=== PATIENT | male | born 1965 | race Caucasian/White ===

== ENCOUNTER 2016-09-11 13:36 | Emergency (ER) | payer BC ==
[2016-09-11 14:10] VITALS: BP 151/81; PULSE 96; RESP 16; TEMP 98.2
[2016-09-11] MEDS ORDERED: DIPH,PERTUS(ACELL)TETVAC-LF 0.5 ML VIAL IM ONE (14:49)
[2016-09-11] MEDS ORDERED: IBUPROFEN 800 MG TAB PO STA (14:50)
[2016-09-11] MEDS ORDERED: AMOXIC-POT CLAV 875-125MG 1 EACH TAB PO STA (14:56)
--- NOTE | 2016-09-11 15:19 | XR ---
EXAMINATION TYPE: XR finger RT, 3 views index finger. DATE OF EXAM: 09/11/2016 3:12 PM COMPARISON: NONE HISTORY: 50-year-old male with dogbite to right index finger, pain TECHNIQUE: 3 views FINDINGS: There appears to be some soft tissue injury to the mid aspect of the index finger. No underlying acut e fracture or dislocation. No retained radiopaque foreign body. IMPRESSION: Soft tissue injury to the index finger without acute osseous abnormality seen.
--- NOTE | 2016-09-11 15:30 | ED ---
Animal Bite HPI - General Chief Complaint: Animal Bite Stated Complaint: Dog Bite/Fingers Time Seen by Provider: 09/11/16 14:33 Source: patient Mode of arrival: ambulatory Limitations: no limitations - History of Present Illness Initial Comments: Patient is a 50-year-old right-handed white male presenting to the emergency department with complaints of dog bite to his right index finger. Onset of injury approximately one hour prior to arrival. Patient states that they fostering a dog from [employer]. Patient states that today he introduced the dog to another dog and they started fighting. Patient states that he grabbed the foster dog mouth and pried apart the jaws. Patient states that the dog then bit his finger. Patient complains of burning pain and swelling to his right index finger but denies numbness or tingling. Denies previous illness, fevers, chills, shortness of breath, nausea, vomiting, shortness of breath, chest pain, abdominal pain. Patient is unsure of date of last tetanus immunization. Patient reports that the foster dog has received its rabies immunizations. MD Complaint: animal bite Onset/Timin -: hour(s) Location: other Right: Hand (Index finger, palmar aspect, middle aspect, 2 cm dog bite/ laceration) Animal: dog Description: household pet, immunizations UTD Mechanism: bite, scratch, contact with mucous membranes Pain Description: burning Severity scale (1-10): 5 Context: animals fighting Associated Symptoms: other (Swelling) Treatments Prior to Arrival: irrigation - Related Data Patient Tetanus UTD: No Home Medications Medication Instructions Recorded Confirmed Fluticasone Nasal [place] [Flonase 1 spray EA NOSTRIL DAILY 06/28/16 09/11/16 Nasal [place]] Previous Rx's Medication Instructions Recorded Amoxic-Pot Clav 875-125Mg 1 tab PO Q12HR #20 tablet 09/11/16 [Augmentin 875-125] Allergies Allergy/AdvReac Type Severity Reaction Status Date / Time No Known Allergies Allergy Verified 09/11/16 14:10 Review of Systems ROS Statement: Those systems with pertinent positive or pertinent negative responses have been documented in the HPI. ROS Other: All systems not noted in ROS Statement are negative. Past Medical History Past Medical History: GERD/Reflux, Osteoarthritis (OA), Sleep Apnea/CPAP/BIPAP Additional Past Medical History / Comment(s): cluster headaches, no cpap used, hx anteroir compartment syndrom rt leg, hx shattered rt fibula History of Any Multi-Drug Resistant Organisms: None Reported Past Surgical History: Orthopedic Surgery Additional Past Surgical History / Comment(s): total 4 surgerys left leg and ankle from injurys, arthroscopy left knee, colonoscopy Past Anesthesia/Blood Transfusion Reactions: Postoperative Nausea & Vomiting ( PONV) Past Psychological History: No Psychological Hx Reported Smoking Status: Never smoker Past Alcohol Use History: None Reported Past Drug Use History: None Reported - Past Family History Mother Family Medical History: Cancer Brother(s) Family Medical History: Cancer General Exam Limitations: no limitations General appearance: alert, in no apparent distress Head exam: Present: atraumatic, normocephalic, normal inspection Eye exam: Present: normal appearance ENT exam: Present: normal exam, mucous membranes moist, normal external ear exam Neck exam: Present: normal inspection, full ROM Respiratory exam: Present: normal lung sounds bilaterally. Absent: respiratory distress, wheezes, rales, rhonchi, stridor Cardiovascular Exam: Present: regular rate, normal rhythm, normal heart sounds. Absent: systolic murmur, diastolic murmur, rubs, gallop, clicks GI/Abdominal exam: Present: soft, normal bowel sounds. Absent: distended, tenderness, guarding, rebound, rigid Right Hand Wrist exam: Present: full ROM, tenderness (Tenderness and swelling to right index finger, palmar aspect, middle aspect), swelling, laceration (2 cm laceration to right middle index finger, palmar aspect). Absent: ecchymosis, dislocation, erythema Neuro motor exam: Present: wrist extension intact, thumb opposition intact, thumb IP flexion intact, thumb adduction intact, fingers 2-5 abduction intact Neurosensory exam: Present: 2-point discrimination, radial nerve intact, ulnar nerve intact, median nerve intact Vascular: Present: normal capillary refill, radial pulse, brachial pulse, ulnar pulse. Absent: vascular compromise, pulse deficit radial art, pulse deficit ulnar art, pulse deficit brachial art Neurological exam: Present: alert, oriented X3, normal gait, other (No focal deficits) Psychiatric exam: Present: normal affect, normal mood Skin exam: Present: warm, dry, intact, normal color. Absent: rash Course Vital Signs 09/11/16 14:05 Temperature 98.2 F Pulse Rate 96 Respiratory 16 Rate Blood Pressure 151/81 O2 Sat by Pulse 96 Oximetry Procedures - Laceration Laceration #1 Consent Obtained: verbal consent Indication: laceration Site: hand (Right index finger, palmar aspect, middle) Size (cm): 2 Description: irregular Depth: simple, single layer Anesthetic Used: lidocaine 1% Anesthesia Technique: local infiltration Amount (mls): 2 Pre-repair: wound explored, irrigated extensively, deep structures intact, wound margins revised Type of Sutures: nylon Size of Sutures: 5-0 Number of Sutures: 4 Technique: simple, interrupted Patient Tolerated Procedure: well, no complications Medical Decision Making - Medical Decision Making Dog bite to right index finger resulting in a 2 cm laceration. X-ray of right finger without fracture. Laceration repaired. Patient tolerated well. Discharge instructions and return parameters reviewed with patient. Patient agrees to treatment plan. - Radiology Data Radiology results: report reviewed X-ray right index finger: Soft tissue injury to the index finger without acute osseous abdomen is seen. Disposition Clinical Impression: Dog bite Disposition: HOME SELF-CARE Condition: Good Instructions: Animal Bite (ED), Care For Your Stitches (ED), Laceration (ED) Additional Instructions: Please finish antibiotic as prescribed. Leave dressing on for 24 hours, remove immediately if wet. Please return to the emergency department immediately for signs of infection such as redness or red streaks going up her arm, increased pain, increased swelling, fevers. Please return to the emergency department for suture removal in approximately 10 days. Follow-up with primary care physician as directed. Prescriptions: Amoxic-Pot Clav 875-125Mg [Augmentin 875-125] 1 tab PO Q12HR #20 tablet Referrals: Josse Banda MD [Primary Care Provider] - 1-2 days Time of Disposition: 15:32
== END 2016-09-11 15:58 | disposition home or self-care (01) ==
LOC: EC 13:36
DX: S61.250A Open bite of right index finger without damage to nail, initial encounter (principal); W54.0XXA Bitten by dog, initial encounter; Z79.51 Long term (current) use of inhaled steroids; G47.30 Sleep apnea, unspecified; Z99.89 Dependence on other enabling machines and devices; Z23 Encounter for immunization
CPT/HCPCS: 12001; 90471; 90715; 99283

== ENCOUNTER 2021-07-13 10:29 | Emergency (ER) | payer BC ==
[2021-07-13] MEDS ORDERED: IBUPROFEN 600 MG TAB PO STA (11:31)
[2021-07-13] MEDS ORDERED: ACETAMINOPHEN TAB 500 MG TAB PO STA (11:31)
[2021-07-13] MEDS ORDERED: SODIUM CHLORIDE 0.9% 1,000 ML IV STA (11:31)
--- NOTE | 2021-07-13 11:46 | ED ---
General Adult HPI - General Chief complaint: Upper Respiratory Infection Stated complaint: Covid+/sob/dizziness Time Seen by Provider: 07/13/21 10:58 Source: patient Mode of arrival: ambulatory Limitations: no limitations - History of Present Illness Initial comments: 55-year-old male presents to the emergency room for a chief complaint of cough. Patient has had a dry cough for 5 days now. States that when he coughs really hard he'll get lightheaded. He has had headaches and body aches. He has not had Motrin or Tylenol today. Patient believes he has COVID-19. He did test positive for a home test. He is not vaccinated. He would like antibody infusion.Patient has no other complaints at this time including shortness of breath, chest pain, abdominal pain, nausea or vomiting, headache, or visual changes. - Related Data Home Medications Medication Instructions Recorded Confirmed Albuterol Sulfate [Albuterol 2 puff PO RT-Q4H PRN 07/13/21 07/13/21 Sulfate Hfa] Budesonide [Pulmicort Flexhaler] 2 puff INHALATION RT-BID PRN 07/13/21 07/13/21 Gabapentin [Neurontin] 300 mg PO TID 07/13/21 07/13/21 Prazosin HCl 1 mg PO HS 07/13/21 07/13/21 levoFLOXacin 500 mg PO DAILY 07/13/21 07/13/21 methylPREDNISolone Dose Pack See Taper PO DIRECTED 07/13/21 07/13/21 [Medrol Dose Pack] Allergies Allergy/AdvReac Type Severity Reaction Status Date / Time No Known Allergies Allergy Verified 09/11/16 14:10 Review of Systems ROS Statement: Those systems with pertinent positive or pertinent negative responses have been documented in the HPI. ROS Other: All systems not noted in ROS Statement are negative. Past Medical History Past Medical History: GERD/Reflux, Osteoarthritis (OA), Sleep Apnea/CPAP/BIPAP Additional Past Medical History / Comment(s): cluster headaches, no cpap used, hx anteroir compartment syndrom rt leg, hx shattered rt fibula History of Any Multi-Drug Resistant Organisms: None Reported Past Surgical History: Orthopedic Surgery Additional Past Surgical History / Comment(s): total 4 surgerys left leg and ankle from injurys, arthroscopy left knee, colonoscopy Past Anesthesia/Blood Transfusion Reactions: Postoperative Nausea & Vomiting (PONV) Past Psychological History: No Psychological Hx Reported Smoking Status: Never smoker Past Alcohol Use History: Occasional Past Drug Use History: None Reported - Past Family History Mother Family Medical History: Cancer Brother(s) Family Medical History: Cancer General Exam Limitations: no limitations General appearance: alert, in no apparent distress Head exam: Present: atraumatic Eye exam: Present: normal appearance, PERRL, EOMI. Absent: scleral icterus, conjunctival injection ENT exam: Present: normal exam, mucous membranes moist Neck exam: Present: normal inspection, full ROM. Absent: tenderness Respiratory exam: Present: normal lung sounds bilaterally. Absent: respiratory distress, wheezes Cardiovascular Exam: Present: regular rate, normal rhythm, normal heart sounds Course Vital Signs 07/13/21 07/13/21 10:40 12:23 Temperature 100.7 F H Pulse Rate 97 87 Respiratory 20 18 Rate Blood Pressure 151/86 129/78 O2 Sat by Pulse 94 L 94 L Oximetry Medical Decision Making - Medical Decision Making Vitals are stable. Patient is 94% on room air. No respiratory distress. Laboratory evaluation was unremarkable aside from some mild dehydration, treated with IV fluids. Wade virus was retested given test was a home test and it was detected. Chest x-ray does show covid pneumonia Patient was given antibody infusion and monitored for an hour in the ER. He was given strict return parameters. He will follow-up with his doctor and return here for any worsening symptoms. - Lab Data Result diagrams: 07/13/21 11:33 07/13/21 11:33 Lab Results 07/13/21 07/13/21 07/13/21 Range/Units 11:32 11:33 11:33 WBC 5.0 (3.8-10.6) k/uL RBC 5.02 (4.30-5.90) m/uL Hgb 15.7 (13.0-17.5) gm/dL Hct 43.3 (39.0-53.0) % MCV 86.4 (80.0-100.0) fL MCH 31.2 (25.0-35.0) pg MCHC 36.2 (31.0-37.0) g/dL RDW 13.1 (11.5-15.5) % Plt Count 106 L (150-450) k/uL MPV 9.7 Neutrophils % 75 % Lymphocytes % 13 % Monocytes % 9 % Eosinophils % 0 % Basophils % 1 % Neutrophils # 3.7 (1.3-7.7) k/uL Lymphocytes # 0.6 L (1.0-4.8) k/uL Monocytes # 0.4 (0-1.0) k/uL Eosinophils # 0.0 (0-0.7) k/uL Basophils # 0.0 (0-0.2) k/uL Hyperchromasia Slight Sodium 135 L (137-145) mmol/L Potassium 3.7 (3.5-5.1) mmol/L Chloride 100 (98-107) mmol/L Carbon Dioxide 21 L (22-30) mmol/L Anion Gap 14 mmol/L BUN 22 H (9-20) mg/dL Creatinine 0.87 (0.66-1.25) mg/dL Est GFR (CKD-EPI)AfAm >90 (>60 ml/min/1.73 sqM) Est GFR (CKD-EPI)NonAf >90 (>60 ml/min/1.73 sqM) Glucose 144 H (74-99) mg/dL Calcium 8.3 L (8.4-10.2) mg/dL Coronavirus (PCR) Detected A (Not Detectd) Disposition Clinical Impression: COVID-19 Disposition: HOME SELF-CARE Condition: Good Instructions (If sedation given, give patient instructions): Coronavirus Disease 2019 (COVID-19) Additional Instructions: Please take Motrin and Tylenol for fever. Drink plenty of fluids. Follow-up with your doctor. Return to the emergency room for any worsening symptoms. Is patient prescribed a controlled substance at d/c from ED?: No Referrals: Josse Banda MD [Primary Care Provider] - 1-2 days Time of Disposition: 12:55
[2021-07-13] MEDS ORDERED: SODIUM CHLORIDE 0.9% 50 ML IVPB ONE (12:00)
[2021-07-13] MEDS ORDERED: SOTROVIMAB (EUA) 500 MG in SODIUM CHLORIDE 0.9% 100 ML IVPB ONE (12:00)
[2021-07-13 12:04] LABS: African American GFR (CKD) >90 (>60 ml/min/1.73 sqM); Anion Gap 14 mmol/L; Blood Urea Nitrogen 22 mg/dL (9-20); Calcium 8.3 mg/dL (8.4-10.2); Carbon Dioxide 21 mmol/L (22-30); Chloride 100 mmol/L (98-107); Glucose 144 mg/dL (74-99); Non-African American GFR(CKD) >90 (>60 ml/min/1.73 sqM); Potassium 3.7 mmol/L (3.5-5.1); Sodium 135 mmol/L (137-145)
--- NOTE | 2021-07-13 12:11 | XR ---
EXAMINATION TYPE: XR chest 1V portable DATE OF EXAM: 07/13/2021 COMPARISON: NONE HISTORY: Cough. TECHNIQUE: Single AP portable frontal upright view of the chest is obtained. FINDINGS: There are low lung volumes and increased bilateral mid to lower lung opacities. No pleural effusion or pneumothorax seen bilaterally. The cardiac silhouette size is upper limits of normal in size. The osseous structures are intact. IMPRESSION: Low lung volumes with increased bilateral mid to lower lung opacities concerning for cov id-19 infection in current environment.
[2021-07-13 12:24] VITALS: RESP 18
[2021-07-13 12:48] LABS: Basophils % (A) 1 %; Eosinophils % (A) 0 %; HCT 43.3 % (39.0-53.0); HGB 15.7 gm/dL (13.0-17.5); Hyperchromasia Slight; Lymphocytes # (A) 0.6 k/uL (1.0-4.8); Lymphocytes % (A) 13 %; MCH 31.2 pg (25.0-35.0); MCHC 36.2 g/dL (31.0-37.0); MCV 86.4 fL (80.0-100.0); Mean Platelet Volume 9.7; Monocytes # (A) 0.4 k/uL (0-1.0); Monocytes % (A) 9 %; Neutrophils # (A) 3.7 k/uL (1.3-7.7); Neutrophils % (A) 75 %; Platelet Count 106 k/uL (150-450); RBC 5.02 m/uL (4.30-5.90); RDW 13.1 % (11.5-15.5)
[2021-07-13 13:41] VITALS: BP 132/81; PULSE 91; TEMP 99.1
== END 2021-07-13 13:44 | disposition home or self-care (01) ==
LOC: EC 10:29
DX: U07.1 COVID-19 (principal); M19.90 Unspecified osteoarthritis, unspecified site; Z72.89 Other problems related to lifestyle
CPT/HCPCS: 99284; 96360; 36415; 80048; 85025; 87635; 71045; Q0247

== ENCOUNTER 2022-04-20 15:47 | Emergency (ER) | payer BC ==
[2022-04-20 16:08] VITALS: TEMP 98.5
--- NOTE | 2022-04-20 18:31 | ED ---
Abdominal Pain HPI - General Chief Complaint: Abdominal Pain Stated Complaint: Abnormal Labs Time Seen by Provider: 04/20/22 18:19 Source: patient Mode of arrival: ambulatory Limitations: no limitations - History of Present Illness Initial Comments: This patient is 56-year-old man with upper abdominal pain who is brought here after having outpatient arranged computed tomography scan. The computed tomography scan reportedly does show element of pancreatitis. The patient states the pain had started approximately 3 days ago. Prior to that the patient had gone golfing and had probably around 8-10 alcoholic drinks. Patient does not drink daily. He denies history of biliary colic. MD Complaint: abdominal pain Onset/Timin -: days(s) Location: LUQ, LLQ Radiation: none Migration to: no migration Severity: mild Quality: dull Consistency: intermittent Improves With: nothing Worsens With: movement Associated Symptoms: constipation - Related Data Home Medications Medication Instructions Recorded Confirmed Albuterol Sulfate [Albuterol 2 puff PO RT-Q4H PRN 07/13/21 07/13/21 Sulfate Hfa] Budesonide [Pulmicort Flexhaler] 2 puff INHALATION RT-BID PRN 07/13/21 07/13/21 Gabapentin [Neurontin] 300 mg PO TID 07/13/21 07/13/21 Prazosin HCl 1 mg PO HS 07/13/21 07/13/21 levoFLOXacin 500 mg PO DAILY 07/13/21 07/13/21 methylPREDNISolone Dose Pack See Taper PO DIRECTED 07/13/21 07/13/21 [Medrol Dose Pack] Previous Rx's Medication Instructions Recorded Famotidine [Pepcid] 20 mg PO BID #14 tablet 04/20/22 HYDROcodone/APAP 5-325MG [[place] 1 tab PO Q4HR PRN 3 Days #18 tab 04/20/22 5-325] Allergies Allergy/AdvReac Type Severity Reaction Status Date / Time No Known Allergies Allergy Verified 04/20/22 16:08 Review of Systems ROS Statement: Those systems with pertinent positive or pertinent negative responses have been documented in the HPI. ROS Other: All systems not noted in ROS Statement are negative. Constitutional: Denies: fever, chills Respiratory: Denies: cough, dyspnea Cardiovascular: Denies: chest pain, palpitations, edema Gastrointestinal: Reports: abdominal pain, constipation. Denies: nausea, vomiting, diarrhea, melena, hematochezia Genitourinary: Denies: dysuria, hematuria, testicular pain, testicular mass Musculoskeletal: Denies: back pain Skin: Denies: rash Neurological: Denies: headache Past Medical History Past Medical History: GERD/Reflux, Osteoarthritis (OA), Sleep Apnea/CPAP/BIPAP Additional Past Medical History / Comment(s): cluster headaches, no cpap used, hx anteroir compartment syndrom rt leg, hx shattered left fibula History of Any Multi-Drug Resistant Organisms: None Reported Past Surgical History: Orthopedic Surgery Additional Past Surgical History / Comment(s): total 4 surgerys left leg and ankle from injurys, arthroscopy left knee, colonoscopy Past Anesthesia/Blood Transfusion Reactions: Postoperative Nausea & Vomiting (PONV) Past Psychological History: No Psychological Hx Reported Smoking Status: Never smoker Past Alcohol Use History: Occasional Past Drug Use History: None Reported - Past Family History Mother Family Medical History: Cancer Brother(s) Family Medical History: Cancer General Exam Limitations: no limitations General appearance: alert, in no apparent distress Head exam: Present: atraumatic, normocephalic Eye exam: Present: normal appearance. Absent: scleral icterus, conjunctival injection ENT exam: Present: normal oropharynx Neck exam: Present: normal inspection Respiratory exam: Present: normal lung sounds bilaterally. Absent: respiratory distress, wheezes, rales, rhonchi, stridor Cardiovascular Exam: Present: regular rate, normal rhythm, normal heart sounds. Absent: systolic murmur, diastolic murmur, rubs, gallop GI/Abdominal exam: Present: soft, tenderness (Mild left-sided abdominal tenderness). Absent: distended, guarding, rebound, rigid, mass, pulsatile mass, hernia Extremities exam: Present: normal inspection, normal capillary refill. Absent: pedal edema, calf tenderness Back exam: Present: normal inspection. Absent: CVA tenderness (R), CVA tenderness (L) Neurological exam: Present: alert Skin exam: Present: warm, dry, intact, normal color. Absent: rash Course Vital Signs 04/20/22 04/20/22 16:04 19:54 Temperature 98.5 F Pulse Rate 84 81 Respiratory 16 15 Rate Blood Pressure 143/87 131/74 O2 Sat by Pulse 95 98 Oximetry Medical Decision Making - Medical Decision Making Patient is a 56-year-old man with pancreatitis. Discussed the management of this with the patient and his and at this point he states he is feeling well and would like to try management as an outpatient. We discussed appropriate further care and follow-up, pancreas diet, return parameters. - Lab Data Result diagrams: 04/20/22 18:39 04/20/22 18:39 Lab Results 04/20/22 04/20/22 Range/Units 18:39 18:39 WBC 13.2 H (3.8-10.6) k/uL RBC 4.74 (4.30-5.90) m/uL Hgb 14.4 (13.0-17.5) gm/dL Hct 42.5 (39.0-53.0) % MCV 89.7 (80.0-100.0) fL MCH 30.4 (25.0-35.0) pg MCHC 33.9 (31.0-37.0) g/dL RDW 12.8 (11.5-15.5) % Plt Count 134 L (150-450) k/uL MPV 9.1 Neutrophils % 72 % Lymphocytes % 16 % Monocytes % 7 % Eosinophils % 4 % Basophils % 0 % Neutrophils # 9.5 H (1.3-7.7) k/uL Lymphocytes # 2.0 (1.0-4.8) k/uL Monocytes # 0.9 (0-1.0) k/uL Eosinophils # 0.5 (0-0.7) k/uL Basophils # 0.1 (0-0.2) k/uL Sodium 133 L (137-145) mmol/L Potassium 4.0 (3.5-5.1) mmol/L Chloride 99 (98-107) mmol/L Carbon Dioxide 21 L (22-30) mmol/L Anion Gap 13 mmol/L BUN 11 (9-20) mg/dL Creatinine 0.84 (0.66-1.25) mg/dL Est GFR (CKD-EPI)AfAm >90 (>60 ml/min/1.73 sqM) Est GFR (CKD-EPI)NonAf >90 (>60 ml/min/1.73 sqM) Glucose 133 H (74-99) mg/dL Calcium 8.8 (8.4-10.2) mg/dL Total Bilirubin 2.1 H (0.2-1.3) mg/dL AST 37 (17-59) U/L ALT 38 (4-49) U/L Alkaline Phosphatase 59 (38-126) U/L Total Protein 7.4 (6.3-8.2) g/dL Albumin 4.2 (3.5-5.0) g/dL Amylase 71 (30-110) U/L Lipase 385 H (23-300) U/L Disposition Clinical Impression: Pancreatitis Disposition: HOME SELF-CARE Condition: Good Instructions (If sedation given, give patient instructions): Pancreatitis (ED) Prescriptions: HYDROcodone/APAP 5-325MG [[place] 5-325] 1 tab PO Q4HR PRN 3 Days #18 tab PRN Reason: Pain Famotidine [Pepcid] 20 mg PO BID #14 tablet Is patient prescribed a controlled substance at d/c from ED?: Yes When asked, does pt state using other controlled substances?: No If prescribed controlled substance>3 days was MAPS reviewed?: Prescribed <3 Days If opioid is for acute pain is fill amount 7 days or less?: Yes If Rx opioid, was Start Talking consent form obtained?: Yes Referrals: Josse Banda MD [Primary Care Provider] - 1-2 days
[2022-04-20 18:43] LABS: Basophils # (A) 0.1 k/uL (0-0.2); Basophils % (A) 0 %; Eosinophils # (A) 0.5 k/uL (0-0.7); Eosinophils % (A) 4 %; HCT 42.5 % (39.0-53.0); HGB 14.4 gm/dL (13.0-17.5); Lymphocytes % (A) 16 %; MCH 30.4 pg (25.0-35.0); MCHC 33.9 g/dL (31.0-37.0); MCV 89.7 fL (80.0-100.0); Mean Platelet Volume 9.1; Monocytes # (A) 0.9 k/uL (0-1.0); Monocytes % (A) 7 %; Neutrophils # (A) 9.5 k/uL (1.3-7.7); Neutrophils % (A) 72 %; Platelet Count 134 k/uL (150-450); RBC 4.74 m/uL (4.30-5.90); RDW 12.8 % (11.5-15.5); WBC 13.2 k/uL (3.8-10.6)
[2022-04-20] MEDS ORDERED: SODIUM CHLORIDE 0.9% 1,000 ML IV ONE (18:44)
[2022-04-20 19:12] LABS: ALT 38 U/L (4-49); AST 37 U/L (17-59); African American GFR (CKD) >90 (>60 ml/min/1.73 sqM); Albumin 4.2 g/dL (3.5-5.0); Alkaline Phosphatase 59 U/L (38-126); Amylase 71 U/L (30-110); Anion Gap 13 mmol/L; Blood Urea Nitrogen 11 mg/dL (9-20); Calcium 8.8 mg/dL (8.4-10.2); Carbon Dioxide 21 mmol/L (22-30); Chloride 99 mmol/L (98-107); Glucose 133 mg/dL (74-99); Lipase 385 U/L (23-300); Non-African American GFR(CKD) >90 (>60 ml/min/1.73 sqM); Sodium 133 mmol/L (137-145); Total Bilirubin 2.1 mg/dL (0.2-1.3); Total Protein 7.4 g/dL (6.3-8.2)
[2022-04-20 19:55] VITALS: BP 131/74; PULSE 81; RESP 15
== END 2022-04-20 19:59 | disposition home or self-care (01) ==
LOC: EC 15:47
DX: K85.90 Acute pancreatitis without necrosis or infection, unspecified (principal); M19.90 Unspecified osteoarthritis, unspecified site
CPT/HCPCS: 36415; 80053; 82150; 83690; 85025; 99284

== ENCOUNTER → 2022-04-20 | Outpatient (CLI) | payer BC ==
--- NOTE | 2022-04-20 15:25 | CT ---
EXAMINATION TYPE: CT abdomen pelvis w con DATE OF EXAM: 04/20/2022 COMPARISON: None INDICATION: Abdominal pain with fever; Family history of diverticulitis DLP: 1932.00 mGycm, Automated exposure control for dose reduction was used. CONTRAST: 100 ml mL of Isovue 300. Study performed with Oral Contrast TECHNIQUE: Axial images were obtained from above the diaphragm to the pubic rami in the axial plane a t 5 mm thick sections. Reconstructed images are reviewed on the computer in the coronal plane. FINDINGS: Limited CT sections are obtained the lung bases. The lung bases are clear. Small hiatal hernia is n ot excluded. CT ABDOMEN: Liver: Normal Spleen: Normal Pancreas: There may be some minimal thickening of the distal pancreas with some adjacent inflammatory change. Correlate for acute pancreatitis. Underlying mass is not excluded. Additional imaging could be performed with MRI with contrast. Adrenal glands: The adrenal glands are normal. Gallbladder: Normal Kidneys: No masses are evident. No hydronephrosis is present. Tiny cysts along the superior medial right kidney. Delayed images were obtained through the kidneys, which remain unremarkable. Aorta: Mild Vascular calcification is within the aorta. Inferior vena cava: Normal. CT PELVIS: Loops of bowel within the abdomen and pelvis are normal. There are loops of bowel which are incom pletely distended or lack oral contrast limiting their evaluation. Appendix: Normal as visualized. Urinary bladder: Normal. Genitourinary structures: Prostate appears normal Osseous structures: No suspicious lytic or sclerotic lesions. IMPRESSIONS: 1. Diffuse thickening of the tail of the pancreas with adjacent inflammatory changes. Correlate for acute pancreatitis. Underlying mass is not excluded. Consider follow-up MRI with contrast the pancrea s
== END | disposition home or self-care (01) ==
LOC: RADCTMAIN 12:18
PROVIDERS: ATTEND Family Medicine
DX: K86.89 Other specified diseases of pancreas (principal)
CPT/HCPCS: 74177; Q9967